=== PATIENT | male | born 1995 | race American Indian/Alaskan Native ===

== ENCOUNTER 2021-03-15 23:16 | Emergency (ER) | payer OTHER ==
[2021-03-16 00:32] VITALS: BP 136/82
[2021-03-16] MEDS ORDERED: HYDROcodone/ACETAMINOPHEN 5-325 MG TAB PO ONE (03:40)
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
--- NOTE | 2021-03-16 04:50 | XRay Report ---
CLINICAL DATA: Trauma TECHNICAL DATA: AP and lateral views lumbar spine. FINDINGS: The bone mineralization is normal. Vertebral body heights are normal. Intervertebral disc spaces are well maintained. Pedicles and spinous processes are normal in alignment. SI joints and sacrum are nor mal. IMPRESSION: Normal examination lumbar spine. Signer Name: Thang Zapata MD Signed: 03/16/2021 4:46 AM Workstation Name: [id number]
--- NOTE | 2021-03-16 04:50 | XRay Report ---
CLINICAL DATA: Trauma TECHNICAL DATA: AP and lateral views were obtained of the thoracic spine. FINDINGS: The thoracic vertebrae have normal anatomic height and alignment. The disc spaces are normal. No sig nificant degenerative changes are present. No evidence of a fracture. There is no paraspinal edema or hemorrhage. IMPRESSION: Normal thoracic spine. Signer Name: Thang Zapata MD Signed: 03/16/2021 4:46 AM Workstation Name: [id number]
--- NOTE | 2021-03-16 04:52 | XRay Report ---
CLINICAL DATA: Trauma TECHNICAL DATA: AP view FINDINGS: There is no acute fracture or dislocation. The visualized joint spaces are normal. The femoral heads appear normally positioned in the acetabular fossa. IMPRESSION: No acute radiographic abnormality. Signer Name: Thang Zapata MD Signed: 03/16/2021 4:47 AM Workstation Name: [id number]
--- NOTE | 2021-03-16 04:52 | XRay Report ---
CLINICAL DATA: Trauma TECHNICAL DATA: Two views were obtained, AP and lateral FINDINGS: There is no acute fracture or dislocation. The visualized joint spaces are normal. IMPRESSION: No acute radiographic abnormality. Signer Name: Thang Zapata MD Signed: 03/16/2021 4:47 AM Workstation Name: [id number]
--- NOTE | 2021-03-16 05:15 | XRay Report ---
CLINICAL DATA: Trauma TECHNICAL DATA: AP internal, AP external, and Y views were obtained of the shoulder. FINDINGS: There is no acute fracture. The glenoid fossa humeral head articulation is normal. There is no acromi oclavicular joint widening or offset. The coracoclavicular distance is normal. There are no significa nt degenerative changes. IMPRESSION: No acute radiographic abnormality. Signer Name: Thang Zapata MD Signed: 03/16/2021 5:11 AM Workstation Name: [id number]
== END 2021-03-16 05:40 | disposition home or self-care (01) ==
LOC: ED 23:16
DX: S09.90XA Unspecified injury of head, initial encounter (principal); M79.605 Pain in left leg; M25.512 Pain in left shoulder; M54.2 Cervicalgia; R51.9 Headache, unspecified; M54.9 Dorsalgia, unspecified; H57.89 Other specified disorders of eye and adnexa; M25.552 Pain in left hip; M79.652 Pain in left thigh; Z98.890 Other specified postprocedural states; Z79.899 Other long term (current) drug therapy; V89.2XXA Person injured in unspecified motor-vehicle accident, traffic, initial encounter; Y93.89 Activity, other specified; Y92.488 Other paved roadways as the place of occurrence of the external cause; Y99.8 Other external cause status
CPT/HCPCS: 70450; 70486; 72070; 72100; 72125; 72170; 99284

== ENCOUNTER 2021-04-02 11:50 | Emergency (ER) | payer SELFPAY ==
[2021-04-02 11:59] VITALS: BP 138/84
[2021-04-02] MEDS ORDERED: KETOROLAC 60 MG/2 ML INJ IM ONE (12:07)
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
== END 2021-04-02 12:18 | disposition home or self-care (01) ==
LOC: ED 11:50
DX: M54.5 Low back pain (principal); Z79.899 Other long term (current) drug therapy
CPT/HCPCS: 96372; 99281; J1885